=== PATIENT | male | born 1935 | race Caucasian/White ===

== ENCOUNTER 2016-08-16 08:00 | Day surgery (SDC) | payer MEDICARE ==
[~2016-08-16 08:00] MED LIST: ADULT ASPIRIN81 MG PO; ALLERGY RELIEF; ALPRAZOLAM0.5 M2 PO; ALPRAZOLAM0.5 MG PO; ASPIR 8181 MG; ASPIRIN EC325 MG PO; ASPIRIN325 M3 PO; ASPIRIN325 MG PO; ASPIRIN81 M1 PO; BACTRIM DS TAB1 EAC2 PO; BENICAR20 MG; BETAGAN5 M1 BOTH EYES; CALCIUM600 MG PO; CELEXA20 MG PO; CLOPIDOGREL75 MG PO; COUMADIN2.5 MG PO; COUMADIN5 M2 PO; COZAAR100 M1 PO; COZAAR100 MG PO; Calcium PO; DECONGESTANT; FLOMAX0.4 M1 PO; FLOMAX0.4 MG PO; GLUCOPHAGE500 M3 PO; GLUCOPHAGE500 MG; GLUCOPHAGE500 MG PO; GLUCOSAMINE & C1 CAP; GLUCOSAMINE1000 M1 PO; GLUCOSAMINE1000 MG PO; HYZAAR 100-25 T1 TAB PO; K-DUR20 MEQ/TA1 NG; LANSOPRAZOLE30 MG PO; LEVOBUNOLOL HCL15 ML OP; LEVOBUNOLOL HCL5 ML EACH EYE; LOVENOX60 MG/0.6 SQ; METOPROLOL TART25 M1 PO; METOPROLOL TART25 MG PO; MULTIVITAMIN1 TAB; MULTIVITAMIN1 TAB PO; MULTIVITAMINS1 EAC6 PO; NITROGLYCERIN0.4 MG SL; OMEPRAZOLE20 M2 PO; OMEPRAZOLE20 MG; PRAVACHOL20 MG; PREVACID30 M2 PO; SIMVASTATIN10 MG PO; WELLBUTRIN XL150 M1 PO; XARELTO15 M1 PO; ZOCOR10 M1 PO; [UNRECOGNIZED DRUG - REMARK]
== END 2016-08-16 12:25 ==
LOC: SRG 08:00 → SHSC 08:26 → ORW 10:01 → SHSC 11:26
PROC: 0HX1XZZ Transfer Face Skin, External Approach (ICD-10-PCS; principal; 2016-08-16)
DX: L57.0 Actinic keratosis (principal); I25.2 Old myocardial infarction; I42.9 Cardiomyopathy, unspecified; M17.0 Bilateral primary osteoarthritis of knee; H40.9 Unspecified glaucoma; K21.9 Gastro-esophageal reflux disease without esophagitis; I12.9 Hypertensive chronic kidney disease with stage 1 through stage 4 chronic kidney disease, or unspecified chronic kidney disease; E11.22 Type 2 diabetes mellitus with diabetic chronic kidney disease; N18.3 Chronic kidney disease, stage 3 (moderate); E11.40 Type 2 diabetes mellitus with diabetic neuropathy, unspecified; E78.5 Hyperlipidemia, unspecified; I25.10 Atherosclerotic heart disease of native coronary artery without angina pectoris; D50.9 Iron deficiency anemia, unspecified; Z79.01 Long term (current) use of anticoagulants; Z79.82 Long term (current) use of aspirin; Z79.84 Long term (current) use of oral hypoglycemic drugs; Z79.899 Other long term (current) drug therapy; Z86.73 Personal history of transient ischemic attack (TIA), and cerebral infarction without residual deficits; Z85.51 Personal history of malignant neoplasm of bladder; Z87.891 Personal history of nicotine dependence; Z98.49 Cataract extraction status, unspecified eye; Z98.890 Other specified postprocedural states
CPT/HCPCS: J0690